=== PATIENT | female | born 1960 | race African-American/Black ===

== ENCOUNTER → 2017-04-10 | Outpatient (CLI) | payer OTHER | END | disposition home or self-care (01) | LOC: CFH 08:12 | PROVIDERS: ATTEND Genetic Counselor, MS | DX: Z12.31 Encounter for screening mammogram for malignant neoplasm of breast (principal) | CPT/HCPCS: 77063; G0202 ==

== ENCOUNTER 2018-05-03 11:29 | Emergency (ER) | payer OTHER ==
[~2018-05-03] VITALS: Ht 165.1 cm; Wt 205.0 kg
[2018-05-03 12:35] VITALS: BP 184/86
[2018-05-03] MEDS ORDERED: LISI-167 PO (12:40)
[2018-05-03] MEDS ORDERED: CELE200C PO (12:41)
[2018-05-03] MEDS ORDERED: CHOL10002 PO (12:41)
[2018-05-03] MEDS ORDERED: METH500T7 PO (12:42)
[2018-05-03] MEDS ORDERED: IBUP-1623 PO (12:43)
[2018-05-03] MEDS ORDERED: ASPI-496 PO (12:44)
== END 2018-05-03 14:06 | disposition home or self-care (01) ==
LOC: ED 12:02
DX: S39.012A Strain of muscle, fascia and tendon of lower back, initial encounter (principal); S93.491A Sprain of other ligament of right ankle, initial encounter; W18.39XA Other fall on same level, initial encounter; Y93.89 Activity, other specified; Y92.238 Other place in hospital as the place of occurrence of the external cause; Y99.8 Other external cause status
CPT/HCPCS: 72131; 99284

== ENCOUNTER → 2018-05-03 | Outpatient (CLI) | payer OTHER ==
[~2018-05-03] MED LIST: ASPI-496 PO; CELE200C PO; CHOL10002 PO; IBUP-1623 PO; LISI-167 PO; METH500T7 PO
== END | disposition home or self-care (01) ==
LOC: CVU 06:48
PROVIDERS: ATTEND Genetic Counselor, MS
DX: I83.813 Varicose veins of bilateral lower extremities with pain (principal); E66.01 Morbid (severe) obesity due to excess calories
CPT/HCPCS: 93970

== ENCOUNTER → 2020-05-25 | Outpatient (CLI) | payer OTHER | END | disposition home or self-care (01) | LOC: CFH 10:38 → EDSTATUS 10:45 | PROVIDERS: ATTEND Genetic Counselor, MS | DX: Z12.31 Encounter for screening mammogram for malignant neoplasm of breast (principal) | CPT/HCPCS: 77063; 77067 ==

== ENCOUNTER 2020-08-30 11:33 | Outpatient (CLI) | payer OTHER ==
[~2020-08-30 11:33] MED LIST changes: +METH-639 PO; -METH500T7 PO
[2020-08-30] MEDS ORDERED: REGADENOSON 0.4 MG/5 ML SYRINGE ONE (12:09)
== END 2020-08-31 23:59 | disposition home or self-care (01) ==
LOC: RAD 11:33
PROVIDERS: ATTEND Physician Assistant Medical
DX: I25.10 Atherosclerotic heart disease of native coronary artery without angina pectoris (principal); I10 Essential (primary) hypertension
CPT/HCPCS: 78452; 93017; A9502; J2785